=== PATIENT | male | born 1945 | race Caucasian/White ===

== ENCOUNTER → 2016-07-09 | Outpatient (CLI) | payer OTHER ==
[~2016-07-09] MED LIST: ACTOS 30 MG TAB30 MG PO; ASPIRIN325 PO; CARAFATE 1 GM TA1 G1 PO; COMBIVENT INH; COREG PO; CORGARD 80MG TA80 M1 PO; CRESTOR40 MG PO; LASIX 40 MG TAB40 M1 PO; MOBIC15 MG PO; NITROQUICK0.4 MG SL; NORVASC 5 MG TAB5 MG PO; PRILOSEC40 MG PO; ZESTRIL20 MG PO
== END ==
LOC: ULTRA 08:16
DX: I73.9 Peripheral vascular disease, unspecified (principal); I70.218 Atherosclerosis of native arteries of extremities with intermittent claudication, other extremity

== ENCOUNTER → 2017-03-13 | Outpatient (CLI) | payer OTHER | LOC: MRI 03-06 09:49 | DX: M47.26 Other spondylosis with radiculopathy, lumbar region (principal); M79.605 Pain in left leg; M79.604 Pain in right leg ==

== ENCOUNTER → 2018-12-15 | Outpatient (CLI) | payer OTHER | LOC: ULTRA 07:39 | DX: K82.4 Cholesterolosis of gallbladder (principal) ==

== ENCOUNTER → 2019-01-07 | Outpatient (CLI) | payer OTHER ==
[2019-01-07 08:26] LABS: CREATININE 1.2 mg/dL (0.7-1.3)
== END ==
LOC: CAT 07:46
PROVIDERS: Neuromusculoskeletal Medicine & OMM
DX: N28.1 Cyst of kidney, acquired (principal); I25.10 Atherosclerotic heart disease of native coronary artery without angina pectoris; I70.0 Atherosclerosis of aorta; D35.01 Benign neoplasm of right adrenal gland; K82.4 Cholesterolosis of gallbladder; J98.4 Other disorders of lung

== ENCOUNTER → 2019-04-22 | Outpatient (CLI) | payer OTHER ==
--- NOTE | 2019-04-22 09:24 | 2DMMODE ---
[facility] [place] [address] 2 D/M-MODE ECHOCARDIOGRAM Name: WASHINGTONMARIELENA Chika Room #: REG [facility]#: [id number] Admission: 04/22/19 Attend Phys: Hong Morris MD Discharge: Date of : 41 Report #: [id number] THIS REPORT FOR: //name// APPROVED REPORT Study performed: 04/22/2019 08:05:10 EXAM: Comprehensive 2D, Doppler, and color-flow Echocardiogram Patient Location: Out-Patient Status: routine BSA: 1.95 HR: 85 bpm BP: 146/72 mmHg Rhythm: Irregular Other Information Study Quality: Good Indications CAD 2D Dimensions RVDd: 42.19 mm IVSd: 11.14 (7-11mm) LVOT Diam: 20.19 (18-24mm) LVDd: 52.08 mm PWd: 12.63 (7-11mm) Ascending Ao: 32.63 (22-36mm) LVDs: 39.96 (25-40mm) Aortic Root: 30.79 mm Volumes Left Atrial Volume (Systole) Single Plane 4CH: 67.40 mL Single Plane 2CH: 39.71 mL LA ESV Index: 29.00 mL/m2 Aortic Valve AoV Peak Odell.: 1.79 m/s AO Peak Gr.: 12.91 mmHg LVOT Max P.22 mmHg LVOT Max V: 1.24 m/s [place] Vmax: 2.23 cm2 AI Vmax: 3.82 m/s AI [place]: 2.00 m/s2 AI PHT: 557.16 ms Mitral Valve [facility] [address] [place] [address] 2 D/M-MODE ECHOCARDIOGRAM Name: MARIELENA DELAROSA Room #: REG CL [facility]#: [id number] Admission: 04/22/19 Attend Phys: Hong Morris MD Discharge: Date of : 41 Report #: [id number] E/A Ratio: 1.2 MV Decel. Time: 204.99 ms MV E Max Odell.: 0.96 m/s MV A Odell.: 0.81 m/s MV PHT: 59.45 ms IVRT: 48.44 ms Pulmonary Valve PV Peak Odell.: 1.12 m/s PV Peak Gr.: 4.98 mmHg Tricuspid Valve TR Peak Odell.: 2.81 m/s RAP Estimate: 5.00 mmHg TR Peak Gr.: 31.68 mmHg PA Pressure: 37.00 mmHg Left Ventricle The left ventricle is normal size. There is normal LV segmental wall motion. Mild concentric left ventricular hypertrophy. The left ventricular systolic function is normal. LVEF is 55-60%. Moderate diastolic dysfunction is present (pseudonormal filling). Right Ventricle The right ventricle is normal size. Right ventricular systolic function is grossly normal. Atria The left atrium size is normal. The right atrium size is normal. Aortic Valve Aortic valve is mildly calcified. Mild to moderate aortic regurgitation. There is no aortic valvular stenosis. Mitral Valve There is mitral annular calcification. Trace mitral regurgitation. No evidence of mitral valve stenosis. Tricuspid Valve The tricuspid valve is normal in structure. Mild tricuspid regurgitation. Estimated PAP is 37mmHg. Pulmonic Valve The pulmonary valve is normal in structure. Trace pulmonic regurgitation. Great Vessels [facility] [address] [place] [address] 2 D/M-MODE ECHOCARDIOGRAM Name: MARIELENA DELAROSA Chika Room #: REG [facility].#: [id number] Admission: 04/22/19 Attend Phys: Hong Morris MD Discharge: Date of : 41 Report #: [id number] The aortic root is normal in size. The ascending aorta is normal in size. IVC is normal in size and collapses >50% with inspiration. Pericardium There is no pericardial effusion. <Conclusion> The left ventricle is normal size. Mild concentric left ventricular hypertrophy. The left ventricular systolic function is normal. Moderate diastolic dysfunction is present (pseudonormal filling). The right ventricle is normal size. The left atrium size is normal. Aortic valve is mildly calcified. Mild to moderate aortic regurgitation. Trace mitral regurgitation. Mild tricuspid regurgitation. Estimated PAP is 37mmHg. <ELECTRONICALLY SIGNED> By: Hong Morris MD 04/22/19922 2 2 Hong Morris MD /ELVA
== END ==
LOC: CV 08:01
DX: I08.2 Rheumatic disorders of both aortic and tricuspid valves (principal); I25.812 Atherosclerosis of bypass graft of coronary artery of transplanted heart without angina pectoris

== ENCOUNTER → 2019-07-20 | Outpatient (CLI) | payer OTHER | LOC: RAD 09:53 | DX: M51.36 Other intervertebral disc degeneration, lumbar region (principal); M17.12 Unilateral primary osteoarthritis, left knee; M16.12 Unilateral primary osteoarthritis, left hip; I70.0 Atherosclerosis of aorta ==

== ENCOUNTER → 2019-10-21 | Outpatient (CLI) | payer OTHER | LOC: SJCVC 09:48 | DX: I49.9 Cardiac arrhythmia, unspecified (principal); I25.812 Atherosclerosis of bypass graft of coronary artery of transplanted heart without angina pectoris; I10 Essential (primary) hypertension; E78.00 Pure hypercholesterolemia, unspecified; R60.9 Edema, unspecified; K21.9 Gastro-esophageal reflux disease without esophagitis; E78.5 Hyperlipidemia, unspecified; Z82.49 Family history of ischemic heart disease and other diseases of the circulatory system; Z79.82 Long term (current) use of aspirin; Z79.899 Other long term (current) drug therapy; Z87.891 Personal history of nicotine dependence ==

== ENCOUNTER → 2020-05-23 | Outpatient (CLI) | payer OTHER | LOC: SJCVC 11:02 | PROVIDERS: ATTEND Internal Medicine Cardiovascular Disease | DX: E78.00 Pure hypercholesterolemia, unspecified (principal); I49.49 Other premature depolarization; I25.10 Atherosclerotic heart disease of native coronary artery without angina pectoris; I10 Essential (primary) hypertension; R60.9 Edema, unspecified; Z79.82 Long term (current) use of aspirin; Z79.899 Other long term (current) drug therapy; Z87.891 Personal history of nicotine dependence ==

== ENCOUNTER → 2020-11-27 | Outpatient (CLI) | payer OTHER | LOC: SJCVC 13:19 | PROVIDERS: ATTEND Internal Medicine Cardiovascular Disease | DX: I25.10 Atherosclerotic heart disease of native coronary artery without angina pectoris (principal); I10 Essential (primary) hypertension; E78.00 Pure hypercholesterolemia, unspecified; R60.9 Edema, unspecified; E11.8 Type 2 diabetes mellitus with unspecified complications; I77.89 Other specified disorders of arteries and arterioles; I73.9 Peripheral vascular disease, unspecified; E78.5 Hyperlipidemia, unspecified; E66.9 Obesity, unspecified; M16.11 Unilateral primary osteoarthritis, right hip; M17.0 Bilateral primary osteoarthritis of knee; K21.9 Gastro-esophageal reflux disease without esophagitis; G47.30 Sleep apnea, unspecified; Z79.82 Long term (current) use of aspirin; Z79.899 Other long term (current) drug therapy; Z87.891 Personal history of nicotine dependence ==

== ENCOUNTER → 2021-06-04 | Outpatient (CLI) | payer OTHER | LOC: SJCVCIMAG 10:22 | PROVIDERS: ATTEND Internal Medicine Cardiovascular Disease | DX: I08.0 Rheumatic disorders of both mitral and aortic valves (principal); I10 Essential (primary) hypertension; I25.10 Atherosclerotic heart disease of native coronary artery without angina pectoris; E78.00 Pure hypercholesterolemia, unspecified; R60.9 Edema, unspecified; K21.9 Gastro-esophageal reflux disease without esophagitis; E78.5 Hyperlipidemia, unspecified; G47.30 Sleep apnea, unspecified; Z79.82 Long term (current) use of aspirin; Z79.899 Other long term (current) drug therapy; Z87.891 Personal history of nicotine dependence; Z82.49 Family history of ischemic heart disease and other diseases of the circulatory system ==